=== PATIENT | male | born 1965 | race Caucasian/White ===

== ENCOUNTER 2018-03-06 01:48 | Emergency (ER) | payer MEDICAID ==
[~2018-03-06] VITALS: Ht 177.8 cm; Wt 81.7 kg
[2018-03-06 02:57] LABS: BASOPHILS ABSOLUTE AUTO 0.07 K/mm3 (0.00-0.23); BASOPHILS PERCENT AUTO 1 % (0-2); EOSINOPHILS ABSOLUTE AUTO 0.33 K/mm3 (0.00-0.68); EOSINOPHILS PERCENT AUTO 3 % (0-6); Hematocrit 40.4 % (37.0-53.0); Hemoglobin 14.2 g/dL (13.5-17.5); IMMATURE GRAN ABSOLUTE AUTO 0.09 K/mm3 (0.00-0.10); IMMATURE GRAN PERCENT AUTO 1 % (0-1); LYMPHOCYTES ABSOLUTE AUTO 2.96 K/mm3 (0.84-5.20); LYMPHOCYTES PERCENT AUTO 30 % (21-46); MONOCYTES ABSOLUTE AUTO 0.98 K/mm3 (0.16-1.47); MONOCYTES PERCENT AUTO 10 % (4-13); Mean Corpuscular HGB 33.6 pg (26.0-34.0); Mean Corpuscular HGB Conc 35.1 g/dL (31.5-36.5); Mean Corpuscular Volume 96 fL (80-100); Mean Platelet Volume 9.8 fL (9.1-12.4); NEUTROPHILS ABSOLUTE AUTO 5.61 K/mm3 (1.96-9.15); NEUTROPHILS PERCENT AUTO 56 % (41-73); Platelet Count 237 K/mm3 (150-400); RDW Coefficient Variation 13.5 % (11.7-14.2); RDW Standard Deviation 47.7 fL (35.1-46.3); Red Blood Cell Count 4.22 M/mm3 (4.30-5.90); White Blood Cell Count 10.04 K/mm3 (4.00-11.30)
[2018-03-06 03:14] LABS: Alanine Aminotransfer (ALT/SGP 28 U/L (12-78); Albumin, Blood 3.3 g/dL (3.4-5.0); Alk Phos 117 U/L (50-136); Anion Gap 10 mmol/L (6-16); Aspartate Aminotrans (AST/SGOT 26 U/L (12-37); Bilirubin, Total 0.2 mg/dL (0.1-1.0); Blood Urea Nitrogen 18 mg/dL (8-24); Bun/Creatinine Ratio 15.4 (12.0-20.0); CO2, Blood 23 mmol/L (21-32); Calcium, Blood 7.9 mg/dL (8.5-10.1); Chloride, Blood 109 mmol/L (98-108); Creatinine, Blood 1.17 mg/dL (0.60-1.20); Globulin, Blood 3.4 g/dL (2.2-4.0); Glomerular Filtration Rate >60 (60-); Glucose, Blood 91 mg/dL (70-99); Potassium, Blood 3.5 mmol/L (3.5-5.5); Sodium, Blood 142 mmol/L (136-145); Total Protein, Blood 6.7 g/dL (6.4-8.2)
[2018-03-06] MEDS ORDERED: Colace100 MG PO (05:39)
== END 2018-03-06 05:54 | disposition home or self-care (01) ==
LOC: ER 01:48
PROVIDERS: Emergency Medicine
DX: K40.20 Bilateral inguinal hernia, without obstruction or gangrene, not specified as recurrent (principal); F17.200 Nicotine dependence, unspecified, uncomplicated
CPT/HCPCS: 36415; 74177; 80053; 85025; 96374; 99284-25; J3010; Q9967

== ENCOUNTER 2018-03-14 00:10 | Emergency (ER) | payer MEDICAID ==
[~2018-03-14] VITALS: Ht 177.8 cm; Wt 87.1 kg
[~2018-03-14 00:10] MED LIST: Colace100 MG PO
== END 2018-03-14 03:54 | disposition home or self-care (01) ==
LOC: ER 00:10
DX: K40.21 Bilateral inguinal hernia, without obstruction or gangrene, recurrent (principal); F17.210 Nicotine dependence, cigarettes, uncomplicated
CPT/HCPCS: 99283

== ENCOUNTER 2018-10-14 01:49 | Emergency (ER) | payer MEDICAID ==
[~2018-10-14] VITALS: Ht 180.3 cm; Wt 70.3 kg
[~2018-10-14 01:49] MED LIST changes: +HYDR1TAB94 PO; +Vibramycin100 MG PO
== END 2018-10-14 04:00 | disposition home or self-care (01) ==
LOC: ER 01:49
DX: G89.18 Other acute postprocedural pain (principal); R10.32 Left lower quadrant pain; F17.290 Nicotine dependence, other tobacco product, uncomplicated
CPT/HCPCS: 72192; 99284-25

== ENCOUNTER 2019-09-02 11:52 | Emergency (ER) | payer SELFPAY ==
[~2019-09-02] VITALS: Ht 180.3 cm; Wt 86.2 kg
[2019-09-02] MEDS ORDERED: HYDR1TAB94 PO (16:12)
[2019-09-02] MEDS ORDERED: IBUP800 PO (16:12)
[2019-09-02] MEDS ORDERED: Colace250 MG PO (16:12)
== END 2019-09-02 16:17 | disposition home or self-care (01) ==
LOC: ER 11:52
DX: R07.81 Pleurodynia (principal); K40.90 Unilateral inguinal hernia, without obstruction or gangrene, not specified as recurrent; F17.210 Nicotine dependence, cigarettes, uncomplicated; W22.8XXA Striking against or struck by other objects, initial encounter
CPT/HCPCS: 71046; 99283-25

== ENCOUNTER 2020-10-28 20:46 | Emergency (ER) | payer OTHER ==
[~2020-10-28] VITALS: Ht 177.8 cm; Wt 86.2 kg
[~2020-10-28 20:46] MED LIST changes: +Colace250 MG PO; +IBUP800 PO
[2020-10-28 21:47] LABS: BASOPHILS PERCENT AUTO 1 % (0-2); EOSINOPHILS ABSOLUTE AUTO 0.17 K/mm3 (0.00-0.68); EOSINOPHILS PERCENT AUTO 2 % (0-6); Hematocrit 40.4 % (37.0-53.0); Hemoglobin 14.2 g/dL (13.5-17.5); IMMATURE GRAN ABSOLUTE AUTO 0.12 K/mm3 (0.00-0.10); IMMATURE GRAN PERCENT AUTO 1 % (0-1); LYMPHOCYTES ABSOLUTE AUTO 2.46 K/mm3 (0.84-5.20); LYMPHOCYTES PERCENT AUTO 26 % (21-46); MONOCYTES ABSOLUTE AUTO 1.13 K/mm3 (0.16-1.47); MONOCYTES PERCENT AUTO 12 % (4-13); Mean Corpuscular HGB 34.1 pg (26.0-34.0); Mean Corpuscular HGB Conc 35.1 g/dL (31.5-36.5); Mean Corpuscular Volume 97 fL (80-100); Mean Platelet Volume 9.1 fL (9.1-12.4); NEUTROPHILS ABSOLUTE AUTO 5.58 K/mm3 (1.96-9.15); NEUTROPHILS PERCENT AUTO 58 % (41-73); Platelet Count 274 K/mm3 (150-400); RDW Coefficient Variation 14.6 % (11.7-14.2); RDW Standard Deviation 52.4 fL (35.1-46.3); Red Blood Cell Count 4.16 M/mm3 (4.30-5.90); White Blood Cell Count 9.56 K/mm3 (4.00-11.30)
[2020-10-28 22:07] LABS: Alanine Aminotransfer (ALT/SGP 34 U/L (12-78); Albumin/Globulin Ratio 0.9 (0.8-1.8); Alk Phos 90 U/L (50-136); Anion Gap 10 mmol/L (6-16); Aspartate Aminotrans (AST/SGOT 33 U/L (12-37); Bilirubin, Total 0.3 mg/dL (0.1-1.0); Blood Urea Nitrogen 17 mg/dL (8-24); Bun/Creatinine Ratio 19.5 (12.0-20.0); CO2, Blood 21 mmol/L (21-32); Calcium, Blood 8.2 mg/dL (8.5-10.1); Chloride, Blood 108 mmol/L (98-108); Creatinine, Blood 0.87 mg/dL (0.60-1.20); Globulin, Blood 3.5 g/dL (2.2-4.0); Glomerular Filtration Rate >60 (60-); Glucose, Blood 90 mg/dL (70-99); Potassium, Blood 3.4 mmol/L (3.5-5.5); Sodium, Blood 139 mmol/L (136-145); Total Protein, Blood 6.5 g/dL (6.4-8.2); Troponin I <0.015 ng/mL (0.000-0.040)
[2020-10-29] MEDS ORDERED: CYCL10 PO (00:44)
== END 2020-10-29 01:16 | disposition home or self-care (01) ==
LOC: ER 20:46
PROVIDERS: Physician Assistant
DX: S23.41XA Sprain of ribs, initial encounter (principal); F17.290 Nicotine dependence, other tobacco product, uncomplicated; Z79.899 Other long term (current) drug therapy; X58.XXXA Exposure to other specified factors, initial encounter
CPT/HCPCS: 36415; 71045; 80053; 83690; 84484; 85025; 93005; 93010; 96374; 99284-25; A9270; J1885

== ENCOUNTER 2020-11-05 14:48 | Emergency (ER) | payer OTHER ==
[~2020-11-05] VITALS: Ht 177.8 cm; Wt 81.7 kg
[~2020-11-05 14:48] MED LIST changes: +CYCL10 PO
[2020-11-05 15:43] LABS: BASOPHILS ABSOLUTE AUTO 0.11 K/mm3 (0.00-0.23); BASOPHILS PERCENT AUTO 1 % (0-2); EOSINOPHILS ABSOLUTE AUTO 0.18 K/mm3 (0.00-0.68); EOSINOPHILS PERCENT AUTO 2 % (0-6); Hematocrit 44.4 % (37.0-53.0); Hemoglobin 15.6 g/dL (13.5-17.5); IMMATURE GRAN PERCENT AUTO 1 % (0-1); LYMPHOCYTES ABSOLUTE AUTO 3.22 K/mm3 (0.84-5.20); LYMPHOCYTES PERCENT AUTO 32 % (21-46); MONOCYTES ABSOLUTE AUTO 0.98 K/mm3 (0.16-1.47); MONOCYTES PERCENT AUTO 10 % (4-13); Mean Corpuscular HGB 34.2 pg (26.0-34.0); Mean Corpuscular HGB Conc 35.1 g/dL (31.5-36.5); Mean Corpuscular Volume 97 fL (80-100); Mean Platelet Volume 9.7 fL (9.1-12.4); NEUTROPHILS ABSOLUTE AUTO 5.39 K/mm3 (1.96-9.15); NEUTROPHILS PERCENT AUTO 54 % (41-73); Platelet Count 234 K/mm3 (150-400); RDW Coefficient Variation 14.9 % (11.7-14.2); RDW Standard Deviation 53.5 fL (35.1-46.3); Red Blood Cell Count 4.56 M/mm3 (4.30-5.90); White Blood Cell Count 9.98 K/mm3 (4.00-11.30)
[2020-11-05 15:57] LABS: Alanine Aminotransfer (ALT/SGP 36 U/L (12-78); Albumin, Blood 3.1 g/dL (3.4-5.0); Albumin/Globulin Ratio 0.9 (0.8-1.8); Alk Phos 108 U/L (50-136); Anion Gap 9 mmol/L (6-16); Aspartate Aminotrans (AST/SGOT 37 U/L (12-37); Bilirubin, Total 0.8 mg/dL (0.1-1.0); Blood Urea Nitrogen 12 mg/dL (8-24); CO2, Blood 26 mmol/L (21-32); Calcium, Blood 8.1 mg/dL (8.5-10.1); Chloride, Blood 107 mmol/L (98-108); Creatinine, Blood 0.86 mg/dL (0.60-1.20); Globulin, Blood 3.4 g/dL (2.2-4.0); Glomerular Filtration Rate >60 (60-); Glucose, Blood 103 mg/dL (70-99); Potassium, Blood 4.1 mmol/L (3.5-5.5); Sodium, Blood 142 mmol/L (136-145); Total Protein, Blood 6.5 g/dL (6.4-8.2); Troponin I <0.015 ng/mL (0.000-0.040)
[2020-11-05] MEDS ORDERED: CYCL10 PO (17:09)
== END 2020-11-05 17:19 | disposition home or self-care (01) ==
LOC: ER 14:48
PROVIDERS: Physician Assistant
DX: R07.89 Other chest pain (principal); F17.210 Nicotine dependence, cigarettes, uncomplicated
CPT/HCPCS: 36415; 71046; 80053; 84484; 85025; 93005; 93010; 96374; 99284-25; J1885

== ENCOUNTER 2020-11-21 19:07 | Emergency (ER) | payer OTHER ==
[~2020-11-21] VITALS: Ht 182.9 cm; Wt 86.2 kg
[2020-11-21 20:43] LABS: BASOPHILS ABSOLUTE AUTO 0.07 K/mm3 (0.00-0.23); BASOPHILS PERCENT AUTO 1 % (0-2); EOSINOPHILS ABSOLUTE AUTO 0.03 K/mm3 (0.00-0.68); EOSINOPHILS PERCENT AUTO 0 % (0-6); Hematocrit 44.4 % (37.0-53.0); Hemoglobin 16.2 g/dL (13.5-17.5); IMMATURE GRAN ABSOLUTE AUTO 0.06 K/mm3 (0.00-0.10); IMMATURE GRAN PERCENT AUTO 1 % (0-1); LYMPHOCYTES ABSOLUTE AUTO 2.45 K/mm3 (0.84-5.20); LYMPHOCYTES PERCENT AUTO 24 % (21-46); MONOCYTES ABSOLUTE AUTO 1.35 K/mm3 (0.16-1.47); MONOCYTES PERCENT AUTO 13 % (4-13); Mean Corpuscular HGB Conc 36.5 g/dL (31.5-36.5); Mean Corpuscular Volume 93 fL (80-100); NEUTROPHILS ABSOLUTE AUTO 6.35 K/mm3 (1.96-9.15); NEUTROPHILS PERCENT AUTO 62 % (41-73); Platelet Count 160 K/mm3 (150-400); RDW Coefficient Variation 14.7 % (11.7-14.2); RDW Standard Deviation 50.8 fL (35.1-46.3); Red Blood Cell Count 4.76 M/mm3 (4.30-5.90); White Blood Cell Count 10.31 K/mm3 (4.00-11.30)
[2020-11-21 21:01] LABS: Alanine Aminotransfer (ALT/SGP 121 U/L (12-78); Albumin, Blood 2.4 g/dL (3.4-5.0); Albumin/Globulin Ratio 0.7 (0.8-1.8); Alk Phos 201 U/L (50-136); Anion Gap 13 mmol/L (6-16); Aspartate Aminotrans (AST/SGOT 388 U/L (12-37); Bilirubin, Total 0.7 mg/dL (0.1-1.0); Blood Urea Nitrogen 13 mg/dL (8-24); Bun/Creatinine Ratio 18.8 (12.0-20.0); CO2, Blood 21 mmol/L (21-32); Calcium, Blood 8.2 mg/dL (8.5-10.1); Chloride, Blood 97 mmol/L (98-108); Creatinine, Blood 0.69 mg/dL (0.60-1.20); Globulin, Blood 3.4 g/dL (2.2-4.0); Glomerular Filtration Rate >60 (60-); Glucose, Blood 182 mg/dL (70-99); Sodium, Blood 131 mmol/L (136-145); Total Protein, Blood 5.8 g/dL (6.4-8.2); Troponin I 0.019 ng/mL (0.000-0.040)
[2020-11-21 21:15] LABS: Ethanol (Alcohol), Blood, Med 373 mg/dL
== END 2020-11-22 00:12 | disposition left against medical advice (07) ==
LOC: ER 19:07
PROVIDERS: Physician Assistant
DX: R07.9 Chest pain, unspecified (principal); Z53.21 Procedure and treatment not carried out due to patient leaving prior to being seen by health care provider
CPT/HCPCS: 36415; 71045; 80053; 83690; 84484; 85025; 93005; 93010; 99283-25; G0480

== ENCOUNTER 2020-11-22 07:09 | Emergency (ER) | payer OTHER ==
[~2020-11-22] VITALS: Ht 182.9 cm; Wt 86.2 kg
== END 2020-11-22 08:15 | disposition home or self-care (01) ==
LOC: ER 07:09
DX: R25.2 Cramp and spasm (principal); F10.10 Alcohol abuse, uncomplicated; F17.210 Nicotine dependence, cigarettes, uncomplicated
CPT/HCPCS: 99283; A9270

== ENCOUNTER 2020-11-28 15:45 | Inpatient (IN) | payer OTHER ==
[~2020-11-28] VITALS: Ht 182.9 cm; Wt 73.9 kg
[2020-11-28 17:25] LABS: International Normalized Ratio 1.28; Prothrombin Time Results 13.6 Sec (9.7-11.5)
[2020-11-28 21:14] LABS: Source, Urine Clean Catch
[2020-11-28 21:16] LABS: Blood, Urine 1+ (Neg); Glucose Qualitative, Urine Neg (Neg); Ketones, Urine Neg (Neg); Leukocyte Esterase, Urine 1+ (Neg); Nitrite, Urine Neg (Neg); Protein, Urine 1+ (Neg); Urobilinogen, Urine 2+ (Normal); pH, Urine 6.5 (5.0-8.0)
[2020-11-28 21:21] LABS: Appearance, Urine Clear (Clear); Bilirubin, Urine 1+ (Neg); Color, Urine Amber (P-Yellow)
[2020-11-28 21:22] LABS: Bacteria Mod /hpf; Red Blood Cells, Urine 0-2 /hpf (0-2); Squamous Epithelial Cells Not Seen /hpf (Few); White Blood Cells, Urine 0-2 /hpf (0-5)
[2020-11-28 23:57] LABS: SARS-Cov-2 (COVID-19) PCR, MMC NEGATIVE (NEGATIVE)
--- NOTE | 2020-11-29 04:41 | NUR ---
APARTMENT ASSISTANT MANAGER SUMMARY NEW ADMIT FROM THE ED VISHAL. PT ADMITTED FOR DVT OF R LEG. PT HAS NOTICABLE SWELLING AND SOME LIGHT REDNESS OF THE RIGHT LEG WELL SOME LESS NOTICABLE SWELLING ON LEFT LEG. PT REPORTS PAIN ONLY IN THE R LEG. PT STATES HE HAS BEEN DEALING WITH THE PAIN OF THE LEG FOR A FEW DAYS WHICH KEPT INCREASING. PT STATES HE IS A DAILY DRINKER AND DRINKS "ABOUT A PINT OF WHATEVER CHEAP WHISKEY I CAN FIND" EACH DAY. PT STATES HE HAS BEEN SELF MEDICATING WITH ALCOHOL RECENTLY DUE TO THE PAIN EVEN MORE SO THAN HIS NORM. CIWA OF 7 WHEN HE ARRIVED TO UNIT. PT WAS ANXIOUS WITH NOTICABLE TREMORS. PT NOW ON 50 MG LIBRIUM Q6 WHICH HAS HELPED MANAGE THOSE SYMPTOMS WELL THUS FAR. PT ALSO REPORTS BEING HOMELESS AND LIVING IN HIS VEHICLE. PT STATES "I FINALLY GOT A COMFORTABLE ENOUGH VEHICLE TO SLEEP IN. I'M PLANNING ON CAMPING IN IT UP IN GLIDE AND HOPING TO FIND WORK UP THERE ONCE I'M FEELING BETTER". VITALS HAVE BEEN STABLE. WILL CONTINUE TO MONITOR.
[2020-11-29 06:04] LABS: Hematocrit 36.5 % (37.0-53.0); Hemoglobin 13.1 g/dL (13.5-17.5); Mean Corpuscular HGB 34.8 pg (26.0-34.0); Mean Corpuscular HGB Conc 35.9 g/dL (31.5-36.5); Mean Corpuscular Volume 97 fL (80-100); Mean Platelet Volume 10.8 fL (9.1-12.4); NRBC ABSOLUTE 0.11 K/mm3 (0.00-0.02); Platelet Count 125 K/mm3 (150-400); RDW Coefficient Variation 14.5 % (11.7-14.2); RDW Standard Deviation 50.5 fL (35.1-46.3); Red Blood Cell Count 3.76 M/mm3 (4.30-5.90); White Blood Cell Count 5.47 K/mm3 (4.00-11.30)
[2020-11-29 06:30] LABS: Alanine Aminotransfer (ALT/SGP 233 U/L (12-78); Albumin, Blood 1.8 g/dL (3.4-5.0); Albumin/Globulin Ratio 0.7 (0.8-1.8); Alk Phos 209 U/L (50-136); Anion Gap 5 mmol/L (6-16); Aspartate Aminotrans (AST/SGOT 532 U/L (12-37); Bilirubin, Total 1.6 mg/dL (0.1-1.0); Blood Urea Nitrogen 6 mg/dL (8-24); Bun/Creatinine Ratio 6.9 (12.0-20.0); CO2, Blood 32 mmol/L (21-32); Chloride, Blood 95 mmol/L (98-108); Creatinine, Blood 0.87 mg/dL (0.60-1.20); Globulin, Blood 2.7 g/dL (2.2-4.0); Glomerular Filtration Rate >60 (60-); Glucose, Blood 121 mg/dL (70-99); Magnesium, Blood 2.2 mg/dL (1.6-2.4); Potassium, Blood 3.2 mmol/L (3.5-5.5); Sodium, Blood 132 mmol/L (136-145); Total Protein, Blood 4.5 g/dL (6.4-8.2)
--- NOTE | 2020-11-29 07:53 | NUR ---
PT CAME TO [facility]. STATES IS GOING TO LEAVE NOW AMA. REFUSED HELP. REFUSED MEDS. DISCUSSED RISKS OF DVT AND ETOH WITHDRAWL. STATES HE UNDERSTANDS. HE STATES HE ACCEPTS RESPONSIBILITY. STATES UNDERSTANDS. REFUSED FUTHER HELP. PARAM HEIS GOING TO SMOKE, AND GO TO HIS VEHICLE AND IS DEFINATELY LEAVING HOSP. HE AGREED TO SIGN AMD D/CHG FORM. I PULLED IV INTAT. REMOVED TELE. I WALKED WITH HIM TO DOOR.
== END 2020-11-29 07:48 | disposition left against medical advice (07) | DRG 299 ==
LOC: ER 15:45 → MEDS 18:27
PROVIDERS: Physician Assistant; ADMIT Internal Medicine
DX: I82.4Z1 Acute embolism and thrombosis of unspecified deep veins of right distal lower extremity (principal); I26.99 Other pulmonary embolism without acute cor pulmonale; E87.1 Hypo-osmolality and hyponatremia; Z20.822 Contact with and (suspected) exposure to COVID-19; E87.6 Hypokalemia; E83.42 Hypomagnesemia; R74.01 Elevation of levels of liver transaminase levels; F10.10 Alcohol abuse, uncomplicated; F17.210 Nicotine dependence, cigarettes, uncomplicated; Z98.890 Other specified postprocedural states
CPT/HCPCS: 36415; 80053; 81001; 81240; 81241; 81291; 83735; 83880; 84145; 85027; 85610; 87086; 93005; 93010; 96365; 96366; 96368; 96372-59; 99284-25; A9270; J1650; J3411; J3475; J3480; J7030; J7042; U0004

== ENCOUNTER 2020-11-29 15:24 | Emergency (ER) | payer OTHER ==
[~2020-11-29] VITALS: Ht 182.9 cm; Wt 74.4 kg
== END 2020-11-29 17:31 | disposition home or self-care (01) ==
LOC: ER 15:24
DX: I82.401 Acute embolism and thrombosis of unspecified deep veins of right lower extremity (principal); I26.99 Other pulmonary embolism without acute cor pulmonale; F17.210 Nicotine dependence, cigarettes, uncomplicated
CPT/HCPCS: 93005; 93010; 96372; 99283-25; J1650

== ENCOUNTER 2021-01-08 22:32 | Observation (INO) | payer OTHER ==
[~2021-01-08] VITALS: Ht 180.3 cm; Wt 73.5 kg
[2021-01-09 00:11] LABS: BASOPHILS ABSOLUTE AUTO 0.07 K/mm3 (0.00-0.23); BASOPHILS PERCENT AUTO 1 % (0-2); EOSINOPHILS ABSOLUTE AUTO 0.03 K/mm3 (0.00-0.68); EOSINOPHILS PERCENT AUTO 0 % (0-6); Hematocrit 38.4 % (37.0-53.0); IMMATURE GRAN ABSOLUTE AUTO 0.01 K/mm3 (0.00-0.10); IMMATURE GRAN PERCENT AUTO 0 % (0-1); LYMPHOCYTES ABSOLUTE AUTO 2.48 K/mm3 (0.84-5.20); LYMPHOCYTES PERCENT AUTO 31 % (21-46); MONOCYTES ABSOLUTE AUTO 0.93 K/mm3 (0.16-1.47); MONOCYTES PERCENT AUTO 12 % (4-13); Mean Corpuscular HGB 36.5 pg (26.0-34.0); Mean Corpuscular HGB Conc 36.5 g/dL (31.5-36.5); Mean Corpuscular Volume 100 fL (80-100); Mean Platelet Volume 9.8 fL (9.1-12.4); NEUTROPHILS ABSOLUTE AUTO 4.39 K/mm3 (1.96-9.15); NEUTROPHILS PERCENT AUTO 55 % (41-73); NRBC ABSOLUTE 0.02 K/mm3 (0.00-0.02); NRBC Auto 0.3 /100 WBC (0.0-0.2); Platelet Count 184 K/mm3 (150-400); RDW Standard Deviation 51.3 fL (35.1-46.3); Red Blood Cell Count 3.84 M/mm3 (4.30-5.90); White Blood Cell Count 7.91 K/mm3 (4.00-11.30)
[2021-01-09 00:26] LABS: International Normalized Ratio 1.17; Prothrombin Time Results 12.5 Sec (9.7-11.5)
[2021-01-09 01:01] LABS: Alanine Aminotransfer (ALT/SGP 306 U/L (12-78); Albumin, Blood 2.8 g/dL (3.4-5.0); Albumin/Globulin Ratio 0.9 (0.8-1.8); Alk Phos 173 U/L (50-136); Anion Gap 13 mmol/L (6-16); Aspartate Aminotrans (AST/SGOT 313 U/L (12-37); Bilirubin, Total 1.4 mg/dL (0.1-1.0); Blood Urea Nitrogen 16 mg/dL (8-24); Bun/Creatinine Ratio 19.7 (12.0-20.0); CO2, Blood 20 mmol/L (21-32); Calcium, Blood 7.1 mg/dL (8.5-10.1); Chloride, Blood 102 mmol/L (98-108); Creatinine, Blood 0.81 mg/dL (0.60-1.20); Globulin, Blood 3.1 g/dL (2.2-4.0); Glomerular Filtration Rate >60 (60-); Glucose, Blood 121 mg/dL (70-99); Potassium, Blood 3.8 mmol/L (3.5-5.5); Sodium, Blood 135 mmol/L (136-145); Total Protein, Blood 5.9 g/dL (6.4-8.2)
[2021-01-09 02:24] LABS: Ethanol (Alcohol), Blood, Med 391 mg/dL
[2021-01-09 03:58] LABS: BASOPHILS ABSOLUTE AUTO 0.06 K/mm3 (0.00-0.23); BASOPHILS PERCENT AUTO 1 % (0-2); EOSINOPHILS ABSOLUTE AUTO 0.02 K/mm3 (0.00-0.68); EOSINOPHILS PERCENT AUTO 0 % (0-6); Hematocrit 36.1 % (37.0-53.0); Hemoglobin 12.8 g/dL (13.5-17.5); IMMATURE GRAN ABSOLUTE AUTO 0.01 K/mm3 (0.00-0.10); IMMATURE GRAN PERCENT AUTO 0 % (0-1); LYMPHOCYTES ABSOLUTE AUTO 1.91 K/mm3 (0.84-5.20); LYMPHOCYTES PERCENT AUTO 31 % (21-46); MONOCYTES ABSOLUTE AUTO 0.71 K/mm3 (0.16-1.47); MONOCYTES PERCENT AUTO 11 % (4-13); Mean Corpuscular HGB 35.7 pg (26.0-34.0); Mean Corpuscular HGB Conc 35.5 g/dL (31.5-36.5); Mean Corpuscular Volume 101 fL (80-100); Mean Platelet Volume 9.9 fL (9.1-12.4); NEUTROPHILS ABSOLUTE AUTO 3.55 K/mm3 (1.96-9.15); NEUTROPHILS PERCENT AUTO 57 % (41-73); Platelet Count 152 K/mm3 (150-400); RDW Standard Deviation 51.6 fL (35.1-46.3); Red Blood Cell Count 3.59 M/mm3 (4.30-5.90); White Blood Cell Count 6.26 K/mm3 (4.00-11.30)
[2021-01-09 04:29] LABS: Alanine Aminotransfer (ALT/SGP 267 U/L (12-78); Albumin, Blood 2.5 g/dL (3.4-5.0); Albumin/Globulin Ratio 0.9 (0.8-1.8); Alk Phos 152 U/L (50-136); Anion Gap 11 mmol/L (6-16); Aspartate Aminotrans (AST/SGOT 268 U/L (12-37); Bilirubin, Total 1.2 mg/dL (0.1-1.0); Blood Urea Nitrogen 13 mg/dL (8-24); Bun/Creatinine Ratio 17.4 (12.0-20.0); CO2, Blood 23 mmol/L (21-32); Calcium, Blood 6.6 mg/dL (8.5-10.1); Chloride, Blood 103 mmol/L (98-108); Creatinine, Blood 0.75 mg/dL (0.60-1.20); Globulin, Blood 2.7 g/dL (2.2-4.0); Glomerular Filtration Rate >60 (60-); Glucose, Blood 111 mg/dL (70-99); Potassium, Blood 3.5 mmol/L (3.5-5.5); Sodium, Blood 137 mmol/L (136-145); Total Protein, Blood 5.2 g/dL (6.4-8.2)
--- NOTE | 2021-01-09 05:04 | NUR ---
SHIPWRIGHT SUPERVISOR SUMMARY PT ARRIVED TO THE UNIT AND WAS ABLE TO TRANSFER SELF TO PCU BED BUT HE HAD A VERY UNSTEADY GAIT. PT HAD UNCONTROLLABLE ARM AND LEG MOVEMENTS AND C/O LEG PAIN. PT GIVEN 1 MG OF ATIVAN FOR ANXIETY WHICH HE RESPONDED WELL TO. PT HAS O2 SATS >92% ON RM AIR BUT HAS OBVIOUS SLEEP APNEA REQUIRING 2L VIA NC TO MAINTAION O2 SATS >90%. PT DENIES ANY CP OR PRESSURE. PT HAD A HR OF 105BPM ON ARRIVAL BUT IS IN THE 120'S THIS AM SO PROVIDER WAS CONTACTED AND ADDITIONAL FLUIDS HAVE BEEN ORDERED. PT HAS BEEN RESTING COMFORTABLY FOR MAJORITY OF THE TIME HE HAS BEEN ON THE UNIT. CIWA DONE ON ARRIVAL W CIWA SCORE OF 7. WILL REPORT TO ONCOMING RN.
--- NOTE | 2021-01-09 18:21 | NUR ---
SHIFT SUMMARY PT A/O AND PLEASANT THIS SHIFT. HX OF ETOH AND CIWAS BEING DONE. LAST CIWA WAS 9 AND PT WAS TREATED PER EMR. PT HYPERTENSIVE AND REPORTS CONSTANT PAIN IN LEGS, TREATED PER EMR FOR THESE CONCERNS WELL. PT HAS SLEPT FOR THE MAJORITY OF THE DAY AND SMELLS OF ALCOHOL. ADVANCED TO A REGULAR DIET WHICH HE IS TOLERATING WELL. UNSTEADY ON FEET AND REQUIRES A 1 PERSON ASSIST TO THE BATHROOM. WILL REPORT TO ZACHARY FARRIS.
[2021-01-09 18:25] LABS: U Amphetamine Screen Not Detected; U Barbituate Screen DETECTED; U Benzodiazapine Screen Not Detected; U Buprenorphine Screen Not Detected; U Cannabinoids Screen DETECTED; U Cocaine Screen Not Detected; U Methadone Screen Not Detected; U Methamphetamine Screen Not Detected; U Opiates Screen Not Detected; U Oxycodone Screen Not Detected; U Phencyclidine Screen Not Detected; U Propoxyphene Screen Not Detected
--- NOTE | 2021-01-10 06:07 | NUR ---
ELASTIC CUTTER SUMMARY PT IS AXO X 2. PT IS VERY TIRED THIS SHIFT BUT WHEN AWAKE HE HAS SEVERE TREMORS AND MODERATE ANXIETY/AGITATION. CIWA'S 9-10 THIS SHIFT. LIBRIUM GIVEN Q3H THIS SHIFT AND 2MG ATIVAN GIVEN X 2 THIS SHIFT. PT'S BP REMAINS ELEVATED 140-160'S, HYDRALAZINE AND CLONIDINE GIVEN X 1 THIS SHIFT, PT RESPONDED WELL TO 10MG HYDRALAZINE OTHERWISE HIS HR AND BP UNAFFECTED BY MEDICATIONS. NS STILL RUNNING AT 150ML/HR BUT PT'S URINE IS STILL DARK. PT IS VERY WEAK ON HIS FEET THIS AM REQUIRING A FWW AND GAIT BELT TO GET INTO THE BATHROOM. BED ALARM ON ALL SHIFT. O2 SATS REMAINED >92% ON RM AIR ALL SHIFT. TELE SHOWING SR/ST 93-110 THIS SHIFT. WILL REPORT TO ONCOMING RN.
--- NOTE | 2021-01-10 09:40 | NUR ---
PT AWAKE AND EATING BREAKFAST, HE IS TREMULOUS, KNOWS WHERE HE IS, COOPERATIVE WITH CARE. SLEEPY, RETURNED TO SLEEP WHEN FINISHED EATING. CALL LIGHT IN REACH.
--- NOTE | 2021-01-10 14:37 | NUR ---
PT FOUND STANDING AT THE SIDE OF THE BED VERY TREMULOUS, LIBRIUM GIVEN. EASILY REDIRECTED. CALL LIGHT AND PHONE IN REACH.
--- NOTE | 2021-01-10 18:01 | NUR ---
PT HAS SLEPT MOST OF THE DAY, DOING WELL, RECIEVED LIBRIUM ONCE, EATING GOOD. NO FURTHER CHANGES THIS SHIFT. CALL LIGHT IN REACH.
[2021-01-11 03:42] LABS: Hematocrit 32.3 % (37.0-53.0); Hemoglobin 11.1 g/dL (13.5-17.5); Mean Corpuscular HGB 35.7 pg (26.0-34.0); Mean Corpuscular HGB Conc 34.4 g/dL (31.5-36.5); Mean Corpuscular Volume 104 fL (80-100); Mean Platelet Volume 10.9 fL (9.1-12.4); NRBC ABSOLUTE 0.03 K/mm3 (0.00-0.02); NRBC Auto 0.7 /100 WBC (0.0-0.2); Platelet Count 111 K/mm3 (150-400); RDW Coefficient Variation 14.7 % (11.7-14.2); RDW Standard Deviation 55.8 fL (35.1-46.3); Red Blood Cell Count 3.11 M/mm3 (4.30-5.90); White Blood Cell Count 4.26 K/mm3 (4.00-11.30)
[2021-01-11 04:03] LABS: Alanine Aminotransfer (ALT/SGP 123 U/L (12-78); Albumin, Blood 1.9 g/dL (3.4-5.0); Albumin/Globulin Ratio 0.8 (0.8-1.8); Alk Phos 162 U/L (50-136); Anion Gap 5 mmol/L (6-16); Aspartate Aminotrans (AST/SGOT 109 U/L (12-37); Bilirubin, Total 1.4 mg/dL (0.1-1.0); Blood Urea Nitrogen 5 mg/dL (8-24); Bun/Creatinine Ratio 6.4 (12.0-20.0); CO2, Blood 27 mmol/L (21-32); Calcium, Blood 7.2 mg/dL (8.5-10.1); Chloride, Blood 108 mmol/L (98-108); Creatinine, Blood 0.78 mg/dL (0.60-1.20); Globulin, Blood 2.5 g/dL (2.2-4.0); Glomerular Filtration Rate >60 (60-); Glucose, Blood 121 mg/dL (70-99); Potassium, Blood 3.1 mmol/L (3.5-5.5); Sodium, Blood 140 mmol/L (136-145); Total Protein, Blood 4.4 g/dL (6.4-8.2)
--- NOTE | 2021-01-11 05:20 | NUR ---
SLEEP LAB TECHNICIAN SUMMARY PT IS AXO X 2-3. PT CIWA'S 9-11 THIS SHIFT W MILD HEADACHE, MODERATE TO SEVERE TREMORS, PT REPORTED MODERATE ANXIETY, PT MORE AGITATED THIS SHIFT. PT WAS VERY ANXIOUS AT START OF THE SHIFT STATING THAT HE NEEDED TO LEAVEM I EXPLAINED THE DANGERS OF THIS AND HOW HE WOULD BE LEAVING AMA AND WHAT THAT MEANT. PT AGRRED TO STAY AND LIBRIUM AND ATIVAN GIVEN PER EMAR THROUGHOUT THE NIGHT. PT'S BP MUCH BETTER THIS SHIFT REMAINING AROUND 140/90. O2 SATS >92% ON RM AIR. PROVIDER CONTACTED AND FLUIDS STOPPED DUE TO GOOD PO INTAKE AND PT ALREADY RECIEVING 6L SINCE ADMISSION. PT HAD 3 EPISODES OF INCONTINENTS THIS SHIFT. GOOD URINE OUTPUT THIS SHIFT. WILL REPORT TO ONCOMING RN.
--- NOTE | 2021-01-11 08:00 | NUR ---
pt sitting up in bed eating breakfast but is sleepy, he reports a good night, but night RN reports he was very agitated all night, he is a/ox3, pleasant and coopertive with care, follows commands well, reports pain in his legs, lungs are clear a bit dim in bases, resp even and unlabored, no cough noted, on r/a, hrr, tele in place running sr per monitor, see strip, no edema noted, ppp+1, cap refill <3sec, vs stable, afebrile, piv to lfa, site is clear and patent, btx4, voids without diff, skin frail, intact, maew, very weak and unsteady on his feet, enoc, call light in reach.
--- NOTE | 2021-01-11 12:43 | NUR ---
pt has been getting more aggitated and tremulous, wants to go smoke, got himself dressed with diff, gave librium, helped some, gave one mg ativan, pt is resting now. call light in reach.
--- NOTE | 2021-01-11 12:54 | NUR ---
pt awake and pulling things off, states he needs to smoke, and is going to leave, asked him to stay until I call . he agreed, Dr. Pena will put discharge orders in.
[2021-01-11] MEDS ORDERED: XARELTO20 MG PO (13:17)
--- NOTE | 2021-01-11 13:35 | NUR ---
PT DETERMINED TO LEAVE, FOUND OUT IN [facility] WITH BACK PACK ON, GOT HIM BACK TO HIS ROOM AND REMOVED HIS IV INTACT, CALLED IN [facility] SCRIPT TO [facility], WENT OVER INSTRUCTIONS, LEFT VIA WHEELCHAIR WITH CLINICAL DATA ANALYST IN ATTENDENCE.
== END 2021-01-11 13:35 | disposition home or self-care (01) ==
LOC: ER 22:32 → PCU 22:33 → ER 01-09 01:56 → PCU 01-09 01:56
PROVIDERS: Emergency Medicine; Internal Medicine; Physician Assistant; ADMIT Internal Medicine
DX: I82.411 Acute embolism and thrombosis of right femoral vein (principal); I82.431 Acute embolism and thrombosis of right popliteal vein; I82.441 Acute embolism and thrombosis of right tibial vein; I82.451 Acute embolism and thrombosis of right peroneal vein; G93.41 Metabolic encephalopathy; F10.229 Alcohol dependence with intoxication, unspecified; Z91.14 Patient's other noncompliance with medication regimen; F17.210 Nicotine dependence, cigarettes, uncomplicated; E87.2 Acidosis; R94.5 Abnormal results of liver function studies; Z59.0 Homelessness; Z86.711 Personal history of pulmonary embolism
CPT/HCPCS: 36415; 80053; 83690; 85025; 85027; 85610; 85730; 93005; 93010; 93970; 94760; 96365; 96366; 96372; 96374; 96375; 96376; 99285-25; A9270; G0378; G0480; J0360; J1650; J2060; J2560; J3411; J3475; J7030; J7042

== ENCOUNTER 2021-01-12 02:58 | Emergency (ER) | payer OTHER ==
[~2021-01-12] VITALS: Ht 180.3 cm; Wt 86.2 kg
[~2021-01-12 02:58] MED LIST changes: +XARELTO20 MG PO
== END 2021-01-12 04:47 | disposition home or self-care (01) ==
LOC: ER 02:58
DX: I82.403 Acute embolism and thrombosis of unspecified deep veins of lower extremity, bilateral (principal); F17.210 Nicotine dependence, cigarettes, uncomplicated; Z79.01 Long term (current) use of anticoagulants
CPT/HCPCS: 99283

== ENCOUNTER 2021-02-16 21:59 | Emergency (ER) | payer OTHER ==
[~2021-02-16] VITALS: Ht 180.3 cm; Wt 86.2 kg
[2021-02-16] MEDS ORDERED: XARELTO15 MG PO (23:48)
== END 2021-02-17 01:35 | disposition home or self-care (01) ==
LOC: ER 21:59
DX: I82.401 Acute embolism and thrombosis of unspecified deep veins of right lower extremity (principal); F17.210 Nicotine dependence, cigarettes, uncomplicated; Z79.01 Long term (current) use of anticoagulants
CPT/HCPCS: 36415; 99283; A9270

== ENCOUNTER 2021-08-15 07:11 | Emergency (ER) | payer OTHER ==
[~2021-08-15] VITALS: Ht 180.3 cm; Wt 88.5 kg
[~2021-08-15 07:11] MED LIST changes: +XARELTO15 MG PO
[2021-08-15] MEDS ORDERED: IBUP800 PO (08:44)
[2021-08-15] MEDS ORDERED: LIDO700A20 TOP (08:44)
== END 2021-08-15 08:54 | disposition home or self-care (01) ==
LOC: ER 07:11
DX: S23.29XA Dislocation of other parts of thorax, initial encounter (principal); X58.XXXA Exposure to other specified factors, initial encounter; F17.210 Nicotine dependence, cigarettes, uncomplicated
CPT/HCPCS: 71101; 99283-25; A9270

== ENCOUNTER 2022-01-05 06:12 | Emergency (ER) | payer OTHER ==
[~2022-01-05] VITALS: Ht 180.3 cm; Wt 90.7 kg
[~2022-01-05 06:12] MED LIST changes: +LIDO700A20 TOP
[2022-01-05 08:11] LABS: Source, Urine Clean Catch
[2022-01-05 08:19] LABS: Appearance, Urine Clear (Clear); Bilirubin, Urine Neg (Neg); Blood, Urine Neg (Neg); Color, Urine Yellow (P-Yellow); Glucose Qualitative, Urine Neg (Neg); Ketones, Urine Neg (Neg); Leukocyte Esterase, Urine Neg (Neg); Nitrite, Urine Neg (Neg); Protein, Urine Neg (Neg); Urobilinogen, Urine NORM (Normal)
[2022-01-05] MEDS ORDERED: OXYC5 PO (10:12)
[2022-01-05] MEDS ORDERED: Bactrim Ds Tab1 EACH PO (10:12)
== END 2022-01-05 10:29 | disposition home or self-care (01) ==
LOC: ER 06:12
PROVIDERS: Emergency Medicine
DX: N45.2 Orchitis (principal); F17.210 Nicotine dependence, cigarettes, uncomplicated
CPT/HCPCS: 76870; 81003; A9270